=== PATIENT | male | born 1950 | race Caucasian/White ===

== ENCOUNTER 2016-06-22 08:31 | Day surgery (SDC) | payer BC ==
--- NOTE | ~2016-06-22 | EGD ---
EGD REPORT [facility] [address] [place]. [id number] NAME: JAYME THAKKAR : [birth year] STATUS : REG [facility] [place] PAT#: [id number] AGE: 66 ADM/REG DATE : 06/22/16 MR#: [id number] REPORT SERV DATE: 06/22/16 DICTATED BY: NUZHAT VEGA DATE: 06/22/16 REPORT STATUS : Draft TRANSCRIBED BY: [facility] DATE: 06/22/16 Endoscopy Center Patient Name: Jayme Thakkar Date of : 1950 Attending MD: NUZHAT VEGA MD Procedure Date No Time: 06/22/2016 Procedure: Colonoscopy Indications: Follow-up for history of adenomatous polyps in the colon, Last colonoscopy: April 2013, Incidental bowel irregularity Referring MD: LIZA JONAS MD, BRENNAN GIL Medicines: Propofol per Anesthesia Complications: No immediate complications. Estimated blood loss: None. Procedure: Pre-Anesthesia Assessment: - After reviewing the risks and benefits, the patient was deemed in satisfactory condition to undergo the procedure. - Prior to the procedure, a History and Physical was performed, and patient medications and allergies were reviewed. The patient's tolerance of previous anesthesia was also reviewed. The risks and benefits of the procedure and the sedation options and risks were discussed with the patient. All questions were answered, and informed consent was obtained. Prior Anticoagulants: The patient has taken Aggrenox, last dose was 6 days prior to procedure. ASA Grade Assessment: III - A patient with severe systemic disease. After reviewing the risks and benefits, the patient was deemed in satisfactory condition to undergo the procedure. After I obtained informed consent, the scope was passed under direct vision. Throughout the procedure, the patient's blood pressure, pulse, and oxygen saturations were monitored continuously. The CF [id number] was introduced through the anus and advanced to the cecum, identified by appendiceal orifice and ileocecal valve. The colonoscopy was performed with difficulty due to a tortuous colon and the patient's body habitus. Successful completion of the procedure was aided by applying abdominal pressure. The patient tolerated the procedure well. The quality of the bowel preparation was adequate. The bowel preparation used was TriLyte. Scope withdrawal time was greater than 8 minutes. Findings: The perianal and digital rectal examinations were normal. Pertinent EGD REPORT [address] [address] NAME: JAYME THAKKAR : [birth year] STATUS : REG [facility]#: [id number] AGE: 66 ADM/REG DATE : 06/22/16 MR#: [id number] REPORT SERV DATE: 06/22/16 DICTATED BY: NUZHAT VEGA DATE: 06/22/16 REPORT STATUS : Draft TRANSCRIBED BY: [facility] DATE: 06/22/16 negatives include normal sphincter tone. Non-bleeding internal hemorrhoids were found during retroflexion and were medium-sized and Grade I (internal hemorrhoids that do not prolapse). Multiple small-mouthed diverticula were found in the sigmoid colon and in the descending colon. A sessile polyp was found in the cecum. The polyp was 4 mm in size. The polyp was removed with a cold snare. Resection and retrieval were complete. Estimated blood loss: none. A sessile polyp was found in the proximal ascending colon. The polyp was 6 mm in size. The polyp was removed with a cold snare. Resection and retrieval were complete. Estimated blood loss: none. The exam was otherwise without abnormality. Impression: - Non-bleeding internal hemorrhoids. - Mild diverticulosis in the sigmoid colon and in the descending colon. - One 4 mm polyp in the cecum. Resected and retrieved. - One 6 mm polyp in the proximal ascending colon. Resected and retrieved. - The examination was otherwise normal. Recommendation: - Discharge patient to home (ambulatory). - High fiber diet indefinitely. - Continue present medications. - Resume Aggrenox tomorrow. - Begin Metamucil or Konsyl one tablespoon daily for irregular bowel movements. - Await pathology results. - Repeat colonoscopy in 5 years for surveillance. - Return to GI clinic PRN. - Patient has a contact number available for emergencies. The signs and symptoms of potential delayed complications were discussed with the patient. Return to normal activities tomorrow. Written discharge instructions were provided to the patient. Procedure Code(s): --- Professional --- 31290, Colonoscopy, flexible, proximal to splenic flexure; with removal of tumor(s), polyp(s), or other lesion(s) by snare technique Diagnosis Code(s): --- Professional --- K64.0, First degree hemorrhoids K57.30, Diverticulosis of large intestine without perforation or abscess without bleeding D12.2, Benign neoplasm of ascending colon EGD REPORT [address] [address] NAME: JAYME THAKKAR : [birth year] STATUS : REG [facility] [place] PAT#: [id number] AGE: 66 ADM/REG DATE : 06/22/16 MR#: [id number] REPORT SERV DATE: 06/22/16 DICTATED BY: NUZHAT VEGA. DATE: 06/22/16 REPORT STATUS : Draft TRANSCRIBED BY: [employer] DATE: 06/22/16 D12.0, Benign neoplasm of cecum Z86.010, Personal history of colonic polyps CPT copyright 2013 [employer]. All rights reserved. The codes documented in this report are preliminary and upon guest relations receptionist review may be revised to meet current compliance requirements. NUZHAT VEGA MD 06/22/2016 10:46 AM This report has been signed electronically. Number of Addenda: 0 Note Initiated On: 06/22/2016 10:11 AM Scope Withdrawal Time 0 hours 8 minutes 23 seconds [id number] [place] [id number]
[~2016-06-22 08:31] MED LIST: AGGRENOX PO; ASA5GR PO; ASAB PO; CRESTOR20 MG PO; CRESTOR40 MG PO; CYANO1000T PO; GLUCOPHXR PO; GLUCOTRO10 PO; GLUCOTROL5 PO; GLUCPH PO; HCTZ25B PO; HYGROTON 25 MG25 MG OR; JANUMET1 TA1 PO; LANTUS SC; NORV5 PO; PRIN10 PO; PRIN20 PO; PRINZIDE1 TA1 PO; REQUIP5 PO; SUCR PO; TOUJEO SQ; TRULICITY0.75 MG/0. SQ; ZOL50 PO
== END 2016-06-22 23:59 | disposition home or self-care (01) ==
LOC: DMU 08:31
PROVIDERS: Internal Medicine Gastroenterology
PROC: 0DBK8ZZ Excision of Ascending Colon, Via Natural or Artificial Opening Endoscopic (ICD-10-PCS; 2016-06-22)
PROC: 0DBH8ZZ Excision of Cecum, Via Natural or Artificial Opening Endoscopic (ICD-10-PCS; principal; 2016-06-22 10:15)
DX: D12.0 Benign neoplasm of cecum (principal); D12.2 Benign neoplasm of ascending colon; K64.0 First degree hemorrhoids; K57.30 Diverticulosis of large intestine without perforation or abscess without bleeding; Z86.010 Personal history of colon polyps; Z98.41 Cataract extraction status, right eye; Z98.42 Cataract extraction status, left eye; Z96.1 Presence of intraocular lens; E11.9 Type 2 diabetes mellitus without complications; F32.9 Major depressive disorder, single episode, unspecified; Z87.442 Personal history of urinary calculi; B15.9 Hepatitis A without hepatic coma; I10 Essential (primary) hypertension; E78.00 Pure hypercholesterolemia, unspecified; Z95.1 Presence of aortocoronary bypass graft; G25.81 Restless legs syndrome; K20.9 Esophagitis, unspecified; K29.70 Gastritis, unspecified, without bleeding; K85.90 Acute pancreatitis without necrosis or infection, unspecified; Z98.890 Other specified postprocedural states; Z86.73 Personal history of transient ischemic attack (TIA), and cerebral infarction without residual deficits; Z95.5 Presence of coronary angioplasty implant and graft; Z87.891 Personal history of nicotine dependence; Z79.84 Long term (current) use of oral hypoglycemic drugs; Z79.82 Long term (current) use of aspirin
CPT/HCPCS: 82962; 88305